=== PATIENT | male | born 1995 | race Caucasian/White ===

== ENCOUNTER 2017-01-31 12:49 | Emergency (ER) | payer MEDICAID ==
[2014-06-03 14:14] VITALS: BMI 23.2
[~2017-01-31 12:49] MED LIST: ACETAMINOPHEN325 MG PO
== END 2017-01-31 14:25 | disposition home or self-care (01) ==
LOC: D.ER 12:49
DX: H61.21 Impacted cerumen, right ear (principal); J02.9 Acute pharyngitis, unspecified

== ENCOUNTER 2018-01-06 22:50 | Emergency (ER) | payer MEDICAID ==
[~2018-01-06] VITALS: Ht 177.8 cm; Wt 72.7 kg
[2018-01-06 23:04] VITALS: BP 138/95; Ht 177.8 cm; Wt 72.7 kg
[2018-01-07] MEDS ORDERED: ACETAMINOPHEN500 M1 PO (00:17)
[2018-01-07] MEDS ORDERED: PENICILLIN V P500 MG PO ×2 (00:17→00:21)
[2018-01-07] MEDS ORDERED: IBUPROFEN800 MG PO ×2 (00:17→00:21)
== END 2018-01-07 00:43 | disposition home or self-care (01) ==
LOC: D.ER 22:50
DX: R68.84 Jaw pain (principal)

== ENCOUNTER 2018-01-27 22:59 | Emergency (ER) | payer MEDICAID ==
[~2018-01-27] VITALS: Ht 177.8 cm; Wt 81.6 kg
[~2018-01-27 22:59] MED LIST changes: +ACETAMINOPHEN500 M1 PO; +IBUPROFEN800 MG PO; +PENICILLIN V P500 MG PO
[2018-01-27 23:05] VITALS: Ht 177.8 cm; Wt 81.6 kg
[2018-01-27] MEDS ORDERED: AMOXICILLIN500 M1 PO (23:41)
[2018-01-27 23:46] VITALS: BP 129/81
== END 2018-01-27 23:47 | disposition home or self-care (01) ==
LOC: D.ER 22:59
DX: K04.7 Periapical abscess without sinus (principal)

== ENCOUNTER 2018-04-28 | Emergency (ER) | payer MEDICAID ==
[~2018-04-28] VITALS: Ht 177.8 cm; Wt 81.8 kg
[~2018-04-28] MED LIST changes: +AMOXICILLIN500 M1 PO
[2018-04-28 00:07] VITALS: Ht 177.8 cm; Wt 81.8 kg
[2018-04-28] MEDS ORDERED: IBUPROFEN800 MG PO (00:22)
[2018-04-28] MEDS ORDERED: PENICILLIN V P500 MG PO (00:22)
[2018-04-28 00:32] VITALS: BP 145/97
== END 2018-04-28 00:32 | disposition home or self-care (01) ==
LOC: D.ER
DX: K08.89 Other specified disorders of teeth and supporting structures (principal)

== ENCOUNTER 2018-05-26 12:26 | Emergency (ER) | payer MEDICAID ==
[~2018-05-26] VITALS: Ht 177.8 cm; Wt 81.8 kg
[2018-05-26 12:30] VITALS: Ht 177.8 cm; Wt 81.8 kg
[2018-05-26] MEDS ORDERED: AUGMENTIN 875-11 TAB PO (15:21)
[2018-05-26 15:26] VITALS: BP 128/72
== END 2018-05-26 15:35 | disposition home or self-care (01) ==
LOC: D.ER 12:26
DX: L03.011 Cellulitis of right finger (principal)

== ENCOUNTER 2018-06-02 12:20 | Emergency (ER) | payer MEDICAID ==
[~2018-06-02] VITALS: Ht 180.3 cm; Wt 81.8 kg
[~2018-06-02 12:20] MED LIST changes: +AUGMENTIN 875-11 TAB PO
[2018-06-02 12:35] VITALS: Ht 180.3 cm; Wt 81.8 kg
[2018-06-02] MEDS ORDERED: MUPIROCIN22 GM TOPICAL (13:58)
[2018-06-02 14:12] VITALS: BP 134/82
== END 2018-06-02 14:13 | disposition home or self-care (01) ==
LOC: D.ER 12:20
DX: S61.203D Unspecified open wound of left middle finger without damage to nail, subsequent encounter (principal); X58.XXXD Exposure to other specified factors, subsequent encounter; Z48.00 Encounter for change or removal of nonsurgical wound dressing

== ENCOUNTER 2018-09-30 19:16 | Inpatient (IN) | payer MEDICAID ==
[~2018-09-30] VITALS: Ht 180.3 cm; Wt 75.8 kg
[~2018-09-30 19:16] MED LIST changes: +MUPIROCIN22 GM TOPICAL
[2018-09-30 19:58] LABS: BASOPHILS 0.3 % (0-2); EOSINOPHILS 4.4 % (0-7); IMMATURE GRANULOCYTES 0.2 % (0-5); LYMPHOCYTES 17.5 % (15-50); MCHC 28.1 g/dL (31.0-37.0); MCV 66.9 fL (80.0-100.0); MEAN PLATELET VOLUME 8.3 fL (7.4-10.4); MONOCYTES 14.5 % (2-11); NEUTROPHILS 63.1 % (40-80); PLATELET COUNT 388 10x3/uL (130-400); RBC 3.14 10x6/uL (4.20-6.10); RDW 17.5 % (11.5-14.5); WBC 6.1 10x3/uL (4.8-10.8)
[2018-09-30 20:07] LABS: INR 1.08 (0.85-1.17); PROTIME 13.5 SECONDS (11.6-15.0)
[2018-09-30 20:19] LABS: ALKALINE PHOSPHATASE 93 U/L (46-116); ALT (SGPT) 16 U/L (10-68); BILIRUBIN - TOTAL 0.19 mg/dL (0.2-1.3); CALC OSMOLALITY 274 mosm/kg (275-300); CALCIUM 7.9 mg/dL (8.5-10.1); CARBON DIOXIDE 25.9 mmol/L (21.0-32.0); CHLORIDE - SERUM 102 mmol/L (98-107); CREATININE - SERUM 1.1 mg/dL (0.6-1.3); GLUCOSE 120 mg/dL (74-106); HEMOGLOBIN 5.9 g/dL (13.5-17.5); LIPASE 162 U/L (73-393); MCH 18.8 pg (26.0-34.0); POTASSIUM - SERUM 3.8 mmol/L (3.5-5.1); PROTEIN - SERUM 6.9 g/dL (6.4-8.2); SODIUM 137 mmol/L (136-145); UREA NITROGEN 13 mg/dL (7-18); eGFR NON AFRICAN AMERICAN 87 mL/min (90-120)
[2018-09-30 20:24] VITALS: BP 116/78
[2018-09-30 21:56] VITALS: BP 122/78
--- NOTE | 2018-09-30 22:21 | NUR ---
RECIEVED TO ROOM 2103 FROM ER VIA STRETCHER. PT A&O. RESPERATIONS EVEN ON RA. VITALS STABLE. IV TO LEFT AC WITH PRBCS INFUSING. NO S/S ADVERSE REACTION NOTED. HISTORY AND MED REC OBTAIN. PT RIP DENIES PAIN OR NEEDS. BED LOW, CL IN REACH.
--- NOTE | 2018-09-30 23:25 | NUR ---
PRBCs FINISHED INFUSING, LINE FLUSHING WITH NS. VITALS STABLE. NO S/S ADVERSE REACTION NOTED.
[2018-10-01] VITALS (7 sets, daily range): BP systolic 94–124; BP diastolic 58–83; Ht 180.3 cm; Wt 75.8 kg
--- NOTE | 2018-10-01 02:25 | NUR ---
RESTING WITH EYES CLOSED, RESPERATIONS EVEN. NO S/S DISTRESS NOTED.
--- NOTE | 2018-10-01 03:45 | NUR ---
SECOND UNIT OF PRBCS FINISHED INFUSING, LINE FLUSHING WITH NS. VITALS STABLE. NO SIGNS OF ADVERSE REACTION NOTED.
[2018-10-01 05:30] LABS: BASOPHILS 0.4 % (0-2); EOSINOPHILS 5.4 % (0-7); HEMATOCRIT 24.8 % (42.0-54.0); MCH 21.7 pg (26.0-34.0); MCHC 30.2 g/dL (31.0-37.0); MEAN PLATELET VOLUME 8.7 fL (7.4-10.4); MONOCYTES 22.2 % (2-11); PLATELET COUNT 324 10x3/uL (130-400); RBC 3.45 10x6/uL (4.20-6.10); RDW 20.9 % (11.5-14.5); WBC 4.6 10x3/uL (4.8-10.8)
[2018-10-01 05:34] LABS: HEMOGLOBIN 7.5 g/dL (13.5-17.5); MCV 71.9 fL (80.0-100.0)
[2018-10-01 05:53] LABS: ALBUMIN 2.7 g/dL (3.4-5.0); ALKALINE PHOSPHATASE 78 U/L (46-116); ALT (SGPT) 16 U/L (10-68); BILIRUBIN - TOTAL 0.31 mg/dL (0.2-1.3); CALC OSMOLALITY 277 mosm/kg (275-300); CALCIUM 7.9 mg/dL (8.5-10.1); CARBON DIOXIDE 24.2 mmol/L (21.0-32.0); CHLORIDE - SERUM 105 mmol/L (98-107); CREATININE - SERUM 0.9 mg/dL (0.6-1.3); GLUCOSE 98 mg/dL (74-106); POTASSIUM - SERUM 3.9 mmol/L (3.5-5.1); PROTEIN - SERUM 6.1 g/dL (6.4-8.2); SODIUM 140 mmol/L (136-145); UREA NITROGEN 11 mg/dL (7-18); eGFR NON AFRICAN AMERICAN > 90 mL/min (90-120)
[2018-10-01 08:45] LABS: TOTAL IRON BIND CAPACITY 242 ug/dl (260-445)
[2018-10-01 08:54] LABS: % SATURATION 5 % (15-55); IRON 14 ug/dl (35-150); UNSAT IRON BIND CAPACITY 228 ug/dl (150-375)
--- NOTE | 2018-10-01 22:08 | NUR ---
PROTONIX GIVEN SLOW IVP. PT DENIES PAIN OR NEEDS, BED LOW, CL IN REACH.
[2018-10-02] VITALS: BP 103/62
--- NOTE | 2018-10-02 01:26 | NUR ---
I have reviewed this patient and I concur with the Shift Assessment completed by the Licensed Practical Nurse today this shift.
[2018-10-02 04:30] VITALS: BP 109/70
[2018-10-02 05:43] LABS: ALBUMIN 2.6 g/dL (3.4-5.0); ALKALINE PHOSPHATASE 84 U/L (46-116); ALT (SGPT) 13 U/L (10-68); BILIRUBIN - TOTAL 0.27 mg/dL (0.2-1.3); CALC OSMOLALITY 280 mosm/kg (275-300); CALCIUM 7.9 mg/dL (8.5-10.1); CARBON DIOXIDE 27.1 mmol/L (21.0-32.0); CHLORIDE - SERUM 106 mmol/L (98-107); GLUCOSE 89 mg/dL (74-106); MAGNESIUM - SERUM 2.1 mg/dL (1.8-2.4); PROTEIN - SERUM 6.4 g/dL (6.4-8.2); SODIUM 142 mmol/L (136-145); UREA NITROGEN 10 mg/dL (7-18); eGFR NON AFRICAN AMERICAN > 90 mL/min (90-120)
[2018-10-02 05:58] LABS: EOSINOPHILS 8.9 % (0-7); HEMATOCRIT 25.6 % (42.0-54.0); HEMOGLOBIN 7.6 g/dL (13.5-17.5); LYMPHOCYTES 35.7 % (15-50); MCH 21.4 pg (26.0-34.0); MCHC 29.7 g/dL (31.0-37.0); MCV 72.1 fL (80.0-100.0); MEAN PLATELET VOLUME 9.1 fL (7.4-10.4); MONOCYTES 17.2 % (2-11); NEUTROPHILS 37.2 % (40-80); PLATELET COUNT 407 10x3/uL (130-400); RBC 3.55 10x6/uL (4.20-6.10); RDW 20.5 % (11.5-14.5); WBC 4.1 10x3/uL (4.8-10.8)
--- NOTE | 2018-10-02 06:42 | NUR ---
SPOKE WITH YONATHAN IN BLOOD BANK, ASKED ABOUT THE 2 [address]S THAT [address] MARKS ORDERED LAST NIGHT THAT ARE TO BE INFUSED THIS AM, INFORMED THAT THE BLOOD WAS NOT READY YET, BUT THAT THEY DO HAVE THE ORDER AND WILL BE WORKING ON IT SHORTLY. WILL PASS THIS INFO ON TO DAY SHIFT NURSE.
[2018-10-02 08:00] VITALS: BP 99/66
[2018-10-02 09:21] LABS: FOLATE (FOLIC ACID) - SERUM 18.3 ng/mL (>3.0)
[2018-10-02 12:00] VITALS: BP 101/64
--- NOTE | 2018-10-02 14:09 | NUR ---
I have reviewed this patient and I concur with the Shift Assessment completed by the Licensed Practical Nurse today this shift.
[2018-10-02 16:00] VITALS: BP 113/71
--- NOTE | 2018-10-02 19:18 | NUR ---
ASSESSMENT COMPLETE, PT A&O. RESPERATIONS EVEN ON RA. IV TO RIGHT AC WITH PRBCS INFUSING. INFORMED BY DAY SHIFT NURSE THAT THIS WAS THE SECOND UNIT GIVEN TODAY. VITALS STABLE. PT DENIES PAIN OR NEEDS.
[2018-10-02 20:00] VITALS: BP 114/77
--- NOTE | 2018-10-02 21:00 | NUR ---
BLOOD FINISHED INFUSING, LINE FLUSHING WITH NS. NO S/S ADVERSE REACTION NOTED.
--- NOTE | 2018-10-02 21:49 | NUR ---
DR MARKS AT BED SIDE TO SEE PT.
[2018-10-03] VITALS: BP 114/77
--- NOTE | 2018-10-03 03:15 | NUR ---
I have reviewed this patient and I concur with the Shift Assessment completed by the Licensed Practical Nurse today this shift.
[2018-10-03 04:00] VITALS: BP 113/70
[2018-10-03 07:00] LABS: BASOPHILS 0.4 % (0-2); EOSINOPHILS 6.8 % (0-7); IMMATURE GRANULOCYTES 0.2 % (0-5); LYMPHOCYTES 35.5 % (15-50); MCH 23.5 pg (26.0-34.0); MCHC 31.2 g/dL (31.0-37.0); MEAN PLATELET VOLUME 8.9 fL (7.4-10.4); MONOCYTES 12.6 % (2-11); NEUTROPHILS 44.5 % (40-80); PLATELET COUNT 375 10x3/uL (130-400); RDW 20.5 % (11.5-14.5)
[2018-10-03 07:03] LABS: HEMATOCRIT 34.9 % (42.0-54.0); HEMOGLOBIN 10.9 g/dL (13.5-17.5); MCV 75.2 fL (80.0-100.0); RBC 4.64 10x6/uL (4.20-6.10); WBC 5.5 10x3/uL (4.8-10.8)
[2018-10-03 07:25] LABS: ALKALINE PHOSPHATASE 87 U/L (46-116); ALT (SGPT) 15 U/L (10-68); BILIRUBIN - TOTAL 0.36 mg/dL (0.2-1.3); CALC OSMOLALITY 282 mosm/kg (275-300); CALCIUM 8.1 mg/dL (8.5-10.1); CARBON DIOXIDE 25.7 mmol/L (21.0-32.0); CHLORIDE - SERUM 105 mmol/L (98-107); CREATININE - SERUM 1.1 mg/dL (0.6-1.3); GLUCOSE 115 mg/dL (74-106); POTASSIUM - SERUM 3.8 mmol/L (3.5-5.1); PROTEIN - SERUM 6.8 g/dL (6.4-8.2); SODIUM 142 mmol/L (136-145); UREA NITROGEN 10 mg/dL (7-18); eGFR NON AFRICAN AMERICAN 87 mL/min (90-120)
--- NOTE | 2018-10-03 09:07 | NUR ---
PT TRANSFERED TO GI LAB AT THIS TIME.
[2018-10-03 09:54] VITALS: BP 115/75
--- NOTE | 2018-10-03 10:48 | NUR ---
PT TRANSFERED BACK TO ROOM 2103, PT A/O X4, RESP EVEN AND NONLABORED ON RA. PROVIDED PT WITH CUP OF COFFEE AND MILK, PT DENIES ANY OTHER NEEDS AT THIS TIME. CALL LIGHT IN REACH, NAD NOTED, WILL CONTINUE TO MONITOR.
[2018-10-03] MEDS ORDERED: PROTONIX40 MG PO (13:34)
[2018-10-03] MEDS ORDERED: PEPCID40 MG PO (13:36)
[2018-10-03 14:10] VITALS: BP 113/70
--- NOTE | 2018-10-03 15:01 | MORECARE ---
CASE MANAGEMENT DISCHARGE SUMMARY PATIENT: JULISSA HEARD UNIT: [id number] ADM DATE: 09/30/18 AGE: 23 : [birth year] SEX: M ROOM/BED: D.2104 AUTHOR: JASMYN KENT PHYSICIAN: REFERRING PHYSICIAN: ZACHARY ORTIZ MD DATE OF SERVICE: 10/03/18 Discharge Plan Patient Name: JULISSA HEARD [facility] [facility] 1995 Planned Disposition: Home Anticipated Discharge Date: Discharge Date: Expected LOS: Initial Reviewer: [email or web address] Initial Review Date: 09/30/2018 Generated: 10/03/18 4:01 pm DCPIA - Discharge Planning Initial Assessment Updated by [email or web address]: Sarah Ngo on 10/03/18 2:54 pm * Is the patient Alert and Oriented? Yes * How many steps to enter\exit or inside your home? * PCP NONE * Pharmacy [facility] [address] * Preadmission Environment Home with Family * ADLs Independent * Equipment None * List name and contact numbers for known caregivers / representatives who currently or will assist patient after discharge: KEYANA HEARD, MOTHER, * Verbal permission to speak to the caregivers and representatives has been obtained from the patient. Yes * Community resources currently utilized None * Additional services required to return to the preadmission environment? No * Can the patient safely return to the preadmission environment? Yes * Has this patient been hospitalized within the prior 30 days at any hospital? No Patient Name: JULISSA HEARD Page [phone] at 1501 All edits/amendments must be made on the electronic document DICTATION DATE: 10/03/18 1501 FRONT OFFICE ADMINISTRATOR: AZALEA 10/03/18 1501 RPT#: [id number] DC DATE: STATUS: ADM IN [facility] [address] [place] [address] END OF REPORT
--- NOTE | 2018-10-03 15:11 | MORECARE ---
CASE MANAGEMENT DISCHARGE SUMMARY PATIENT: JULISSA HEARD UNIT: [id number] ADM DATE: 09/30/18 AGE: 23 : [birth year] SEX: M ROOM/BED: D.2104 AUTHOR: YOLI,DOC PHYSICIAN: REFERRING PHYSICIAN: ZACHARY ORTIZ MD DATE OF SERVICE: 10/03/18 Discharge Plan Patient Name: JULISSA HEARD Facility: [facility]:[place] : 1995 Planned Disposition: Home Anticipated Discharge Date: Discharge Date: Expected LOS: Initial Reviewer: [id number] Initial Review Date: 09/30/2018 Generated: 10/03/18 4:11 pm Comments DCP- Discharge Planning Updated by [email or web address]: Sarah Ngo on 10/03/18 2:[address] Patient Name: JULISSA HEARD Admission Status: ER Accout number: [id number] Admission Date: 09-30-2018 : 1995 Admission Diagnosis: Attending: ZACHARY ORTIZ Current LOS: 3 Anticipated DC Date: Planned Disposition: Home Primary Insurance: [employer] Discharge Planning Comments: CM MET WITH PATIENT IN THE ROOM TO DISCUSS DISCHARGE PLANNING NEEDS. PATIENT STATED THAT HE LIVES AT HOME WITH MOM. THERE ARE 3 STEPS AT THE FRONT OF THE APARTMENT AND 18 STEPS WITH A BANISTER ONCE YOU GET INSIDE. HE STATED THAT HE WAS ABLE TO CLIMB THOSE JUST FINE PRIOR TO GETTING SICK. HE STATED THAT HE HAS ONLY BEEN UP TO THE BATHROOM WHILE HE WAS IN THE HOSPITAL. I ASKED IF HE WOULD BE WILLING TO WALK THE HALLS ONE ROTATION TO MAKE SURE HIS STRENGTH WAS GOOD ENOUGH, AND HE STATED THAT HE FELT HE WOULD BE OK WITH OUT DOING THAT. HE DENIES ANY COMMUNIT RESOURCES CURRENTLY OR THE NEED FOR THEM. HE HAS NOT MEDICAL EQUIPMENT. HE EXPRESSED HIS CONCERN ABOUT NOT HAVING ANYTHING TO WEAR HOME AND I EXPLAINED THAT I WOULD GET HIM A PAIR OF SCRUBS TO WEAR HOME. HE STATED THAT HE ALSO HAS NO TRANSPORTATION HOME. I ASKED IF HE HAD FAMILY THAT COULD TRANSPORT HIM HOME. HE STATED THAT HE HAS A BROTHER THAT WORKS AWAY DURING THE WEEK AND WOULD NOT BE BACK UNTIL THE WEEKEND. HE WOULD ONLY BE ABLE TO GIVE HIM A RIDE ON MONDAY. I ASKED ABOUT HIS MOM, AND HE STATED THAT SHE DOES NOT DRIVE NOR DOES SHE HAVE A CAR. I ASKED IF HE KNEW IF HIS [employer]IVATE [employer] HAD TRANSPORTATION BENEFITS, AND HE SAID HE DID NOT KNOW- THEY JUST USUALLY HAVE TO FIND A RIDE WHEN NEEDED. I EXPLAINED THAT I WOULD LOOK INTO IT AND SEE WHAT WE COULD DO TO HELP AND LET HIM KNOW. AFTER COLLABORATING WITH [employer] [place], IT WAS DISCOVERED THAT THE PATIENTS ADDRESS IS ON THE BUS ROUTE AND A BUS PASS WAS GIVEN FOR TRANSPORT HOME. PT REPORTED TO [facility] THAT HE WOULD LIKE FOOD BEFORE HE LEAVES BECAUSE THEY DID NOT HAVE MUCH FOOD, AND YOHANNES ALSO PROVIDED THE PATIENT INFORMATION FOR [facility] [facility]. WILL FOLLOW UNTIL PATIENT LEAVES. Drive In Waiter/Waitress: Sarah Ngo RN DCPIA - Discharge Planning Initial Assessment Updated by [email or web address]: Sarah Ngo on 10/03/18 2:54 pm * Is the patient Alert and Oriented? Yes * How many steps to enter\exit or inside your home? * PCP NONE * Pharmacy [facility] [address] * Preadmission Environment Home with Family * ADLs Independent * Equipment None * List name and contact numbers for known caregivers / representatives who currently or will assist patient after discharge: KEYANA HEARD, MOTHER, * Verbal permission to speak to the caregivers and representatives has been obtained from the patient. Yes * Community resources currently utilized None * Additional services required to return to the preadmission environment? No * Can the patient safely return to the preadmission environment? Yes * Has this patient been hospitalized within the prior 30 days at any hospital? No Last DP export: 10/03/18 2:01 p Patient Name: JULISSA HEARD Page [phone] at 1511 All edits/amendments must be made on the electronic document DICTATION DATE: 10/03/181509 TECHNICAL SERVICES REP: AZALEA 10/03/181509 RPT#: [id number] DC DATE: STATUS: ADM IN [facility] [address] [place] [address] END OF REPORT
--- NOTE | 2018-10-03 15:52 | NUR ---
PROVIDED VERBAL AND WRITTEN DISCHARGE TEACHING. PT VERBALIZED UNDERSTANDING REGARDING TEACHING. D/C RT HAND IV WITH CATHETER TIP INTACT. PT READY FOR WHEELCHAIR.
--- NOTE | 2018-10-03 16:00 | NUR ---
PT LEFT UNIT VIA WHEELCHAIR, WITH ALL BELONGINGS. PT TO RIDE BUS HOME. NAD NOTED.
--- NOTE | 2018-10-03 17:12 | MORECARE ---
CASE MANAGEMENT DISCHARGE SUMMARY PATIENT: JULISSA HEARD UNIT: [id number] ADM DATE: 09/30/18 AGE: 23 : [birth year] SEX: M ROOM/BED: D.2104 AUTHOR: YOLI,DOC PHYSICIAN: REFERRING PHYSICIAN: ZACHARY ORTIZ MD DATE OF SERVICE: 10/03/18 Discharge Plan Patient Name: JULISSA HEARD Facility: [facility]:[place] : 1995 Planned Disposition: Home Anticipated Discharge Date: 10/03/18 Discharge Date: 10/03/2018 Expected LOS: 3 Initial Reviewer: [email or web address] Initial Review Date: 09/30/2018 Generated: 10/03/18 6:12 pm Comments DCP- Discharge Planning Updated by [email or web address]: Sarah Ngo on 10/03/18 2:[address] Patient Name: JULISSA HEARD Admission Status: ER Accout number: [id number] Admission Date: 09-30-2018 : 1995 Admission Diagnosis: Attending: ZACHARY ORTIZ Current LOS: 3 Anticipated DC Date: Planned Disposition: Home Primary Insurance: [employer] Discharge Planning Comments: CM MET WITH PATIENT IN THE ROOM TO DISCUSS DISCHARGE PLANNING NEEDS. PATIENT STATED THAT HE LIVES AT HOME WITH MOM. THERE ARE 3 STEPS AT THE FRONT OF THE APARTMENT AND 18 STEPS WITH A BANISTER ONCE YOU GET INSIDE. HE STATED THAT HE WAS ABLE TO CLIMB THOSE JUST FINE PRIOR TO GETTING SICK. HE STATED THAT HE HAS ONLY BEEN UP TO THE BATHROOM WHILE HE WAS IN THE HOSPITAL. I ASKED IF HE WOULD BE WILLING TO WALK THE HALLS ONE ROTATION TO MAKE SURE HIS STRENGTH WAS GOOD ENOUGH, AND HE STATED THAT HE FELT HE WOULD BE OK WITH OUT DOING THAT. HE DENIES ANY COMMUNIT RESOURCES CURRENTLY OR THE NEED FOR THEM. HE HAS NOT MEDICAL EQUIPMENT. HE EXPRESSED HIS CONCERN ABOUT NOT HAVING ANYTHING TO WEAR HOME AND I EXPLAINED THAT I WOULD GET HIM A PAIR OF SCRUBS TO WEAR HOME. HE STATED THAT HE ALSO HAS NO TRANSPORTATION HOME. I ASKED IF HE HAD FAMILY THAT COULD TRANSPORT HIM HOME. HE STATED THAT HE HAS A BROTHER THAT WORKS AWAY DURING THE WEEK AND WOULD NOT BE BACK UNTIL THE WEEKEND. HE WOULD ONLY BE ABLE TO GIVE HIM A RIDE ON MONDAY. I ASKED ABOUT HIS MOM, AND HE STATED THAT SHE DOES NOT DRIVE NOR DOES SHE HAVE A CAR. I ASKED IF HE KNEW IF HIS [employer]IVATE [employer] HAD TRANSPORTATION BENEFITS, AND HE SAID HE DID NOT KNOW- THEY JUST USUALLY HAVE TO FIND A RIDE WHEN NEEDED. I EXPLAINED THAT I WOULD LOOK INTO IT AND SEE WHAT WE COULD DO TO HELP AND LET HIM KNOW. AFTER COLLABORATING WITH [employer], IT WAS DISCOVERED THAT THE PATIENTS ADDRESS IS ON THE BUS ROUTE AND A BUS PASS WAS GIVEN FOR TRANSPORT HOME. PT REPORTED TO [facility] THAT HE WOULD LIKE FOOD BEFORE HE LEAVES BECAUSE THEY DID NOT HAVE MUCH FOOD, AND YOHANNES ALSO PROVIDED THE PATIENT INFORMATION FOR [employer]. WILL FOLLOW UNTIL PATIENT LEAVES. Printing Shop Supervisor: Sarah Ngo RN DCPIA - Discharge Planning Initial Assessment Updated by [id number]: Sarah Ngo on 10/03/18 2:54 pm * Is the patient Alert and Oriented? Yes * How many steps to enter\exit or inside your home? * PCP NONE * [facility] [address] * Preadmission Environment Home with Family * ADLs Independent * Equipment None * List name and contact numbers for known caregivers / representatives who currently or will assist patient after discharge: KEYANA HEARD, MOTHER, * Verbal permission to speak to the caregivers and representatives has been obtained from the patient. Yes * Community resources currently utilized None * Additional services required to return to the preadmission environment? No * Can the patient safely return to the preadmission environment? Yes * Has this patient been hospitalized within the prior 30 days at any hospital? No Last DP export: 10/03/18 2:11 p Patient Name: JULISSA HEARD Page [phone] at 1712 All edits/amendments must be made on the electronic document DICTATION DATE: 10/03/181710 KNOCKDOWN WORKER: AZALEA 10/03/181710 RPT#: [id number] DC DATE:10/03/18 STATUS: DIS IN [facility] [address] [place] [address] END OF REPORT
== END 2018-10-03 16:01 | disposition home or self-care (01) | DRG 812 ==
LOC: D.ER 19:16 → D.M2 21:56
PROVIDERS: Emergency Medicine; Family Medicine; Internal Medicine Gastroenterology; Legal Medicine; ADMIT Internal Medicine Nephrology; ATTEND Internal Medicine Nephrology
PROC: 0DB68ZX Excision of Stomach, Via Natural or Artificial Opening Endoscopic, Diagnostic (ICD-10-PCS; 2018-10-03)
PROC: 0DB58ZX Excision of Esophagus, Via Natural or Artificial Opening Endoscopic, Diagnostic (ICD-10-PCS; 2018-10-03)
PROC: 0DB98ZX Excision of Duodenum, Via Natural or Artificial Opening Endoscopic, Diagnostic (ICD-10-PCS; principal; 2018-10-03 09:25)
DX: D62 Acute posthemorrhagic anemia (principal); K22.10 Ulcer of esophagus without bleeding; D50.9 Iron deficiency anemia, unspecified; D72.819 Decreased white blood cell count, unspecified; K44.9 Diaphragmatic hernia without obstruction or gangrene; K31.7 Polyp of stomach and duodenum; K29.80 Duodenitis without bleeding; K59.00 Constipation, unspecified

== ENCOUNTER 2019-03-15 16:55 | Observation (INO) | payer MEDICAID ==
[2019-03-15] VITALS (7 sets, daily range): BP systolic 118–149; BP diastolic 80–106
[~2019-03-15] VITALS: Ht 180.3 cm; Wt 81.8 kg
[~2019-03-15 16:55] MED LIST changes: +PEPCID40 MG PO; +PROTONIX40 MG PO
[2019-03-15] MEDS ORDERED: [UNRECOGNIZED DRUG - REMARK] (17:03)
[2019-03-15] MEDS ORDERED: [UNRECOGNIZED DRUG - REMARK] (17:04)
[2019-03-15 17:23] LABS: BASOPHILS 0.6 % (0-2); EOSINOPHILS 4.4 % (0-7); HEMATOCRIT 38.4 % (42.0-54.0); HEMOGLOBIN 12.4 g/dL (13.5-17.5); IMMATURE GRANULOCYTES 0.2 % (0-5); LYMPHOCYTES 26.8 % (15-50); MCH 23.7 pg (26.0-34.0); MCHC 32.3 g/dL (31.0-37.0); MCV 73.3 fL (80.0-100.0); MEAN PLATELET VOLUME 8.7 fL (7.4-10.4); MONOCYTES 11.2 % (2-11); NEUTROPHILS 56.8 % (40-80); PLATELET COUNT 352 10x3/uL (130-400); RBC 5.24 10x6/uL (4.20-6.10); RDW 17.4 % (11.5-14.5); WBC 5.4 10x3/uL (4.8-10.8)
--- NOTE | 2019-03-15 17:27 | NUR ---
FSBS= 119 MG/DL
[2019-03-15 17:48] LABS: ALBUMIN 4.3 g/dL (3.4-5.0); ALKALINE PHOSPHATASE 75 U/L (46-116); ALT (SGPT) 17 U/L (10-68); BILIRUBIN - TOTAL 0.38 mg/dL (0.2-1.3); CALC OSMOLALITY 279 mosm/kg (275-300); CALCIUM 9.7 mg/dL (8.5-10.1); CARBON DIOXIDE 21.5 mmol/L (21.0-32.0); CHLORIDE - SERUM 102 mmol/L (98-107); CREATININE - SERUM 1.3 mg/dL (0.6-1.3); GLUCOSE 123 mg/dL (74-106); POTASSIUM - SERUM 3.7 mmol/L (3.5-5.1); PROTEIN - SERUM 7.8 g/dL (6.4-8.2); SODIUM 140 mmol/L (136-145); UREA NITROGEN 12 mg/dL (7-18); eGFR NON AFRICAN AMERICAN 71 mL/min (90-120)
[2019-03-15 17:56] LABS: APTT 24.9 SECONDS (22.8-39.4); INR 1.11 (0.85-1.17); PROTIME 13.8 SECONDS (11.6-15.0)
[2019-03-15 17:59] LABS: AMYLASE - SERUM 32 U/L (25-115); LIPASE 167 U/L (73-393); THYROID STIMULATING HORMONE 1.26 uIU/mL (0.36-3.74); TROPONIN-I < 0.017 ng/mL (0.000-0.060)
[2019-03-15 18:02] LABS: UDS - AMPHET NEGATIVE QUAL (NEGATIVE); UDS - BARB NEGATIVE QUAL (NEGATIVE); UDS - BENZO NEGATIVE QUAL (NEGATIVE); UDS - COCAINE NEGATIVE QUAL (NEGATIVE); UDS - OPIATE NEGATIVE QUAL (NEGATIVE); UDS - PCP NEGATIVE QUAL (NEGATIVE); UDS - THC NEGATIVE QUAL (NEGATIVE)
[2019-03-15 18:03] LABS: APPEARANCE CLEAR (CLEAR); BILIRUBIN NEGATIVE (NEGATIVE); COLOR YELLOW (YELLOW); GLUCOSE NEGATIVE (NEGATIVE); KETONE SMALL mg/dL (NEGATIVE); NITRITE NEGATIVE (NEGATIVE); PROTEIN NEGATIVE (NEGATIVE); UROBILINOGEN NORMAL (NORMAL)
--- NOTE | 2019-03-15 18:11 | NUR ---
TO CT VIA STRETCHER
--- NOTE | 2019-03-15 18:29 | NUR ---
RTN TO ROOM RESTING QUIETLY IN BED. VSS
--- NOTE | 2019-03-15 19:07 | NUR ---
BS REPORT TO GLORIA RUEDA BY SBAR FORMAT
--- NOTE | 2019-03-15 19:33 | NUR ---
LAB CALLED CRITICAL LACTIC 4.0. EDP CARSON NOTIFIED.
--- NOTE | 2019-03-15 20:50 | NUR ---
PT IN BED RESTING AT THIS TIME. NO ACUTE DISTRESS NOTED
--- NOTE | 2019-03-15 22:05 | NUR ---
PT IN BED, ON PHONE WITH MOTHER. NO ACUTE DISTRESS NOTED.
--- NOTE | 2019-03-16 | NUR ---
RECEIVED PT FROM ER VIA BED. ALERT AND ANSWERS QUESTIONS APPROPRIATELY. NO SIGNS OF ACUTE DISTRESS NOTED. IV TO THE RIGHT FOREARM, CDI. POSITIONED PT IN BED, CL IN REACH AND ENCOURAGED PT TO USE CALL LIGHT. CONTINUE WITH PLAN OF CARE.
[2019-03-16 00:28] VITALS: BP 136/77; Ht 180.3 cm; Wt 81.8 kg
--- NOTE | 2019-03-16 03:15 | NUR ---
PT REPORTS PAIN DURING IV INFUSING TO THE RT FOREARM. DC WITH CATH INTACT. RESIDTED IV IN THE RT FOREARM RIGHT ABOVE THE PREVIOUS SITE. CONTINUE WITH PLAN OF CARE.
[2019-03-16 05:09] LABS: BASOPHILS 0.3 % (0-2); EOSINOPHILS 0.7 % (0-7); HEMATOCRIT 32.5 % (42.0-54.0); HEMOGLOBIN 10.7 g/dL (13.5-17.5); IMMATURE GRANULOCYTES 0.1 % (0-5); LYMPHOCYTES 19.1 % (15-50); MCH 24.1 pg (26.0-34.0); MCHC 32.9 g/dL (31.0-37.0); MCV 73.2 fL (80.0-100.0); MEAN PLATELET VOLUME 8.6 fL (7.4-10.4); MONOCYTES 10.2 % (2-11); NEUTROPHILS 69.6 % (40-80); PLATELET COUNT 312 10x3/uL (130-400); RBC 4.44 10x6/uL (4.20-6.10); RDW 17.4 % (11.5-14.5)
[2019-03-16] MEDS ORDERED: KEFLEX500 MG PO (05:11)
[2019-03-16 05:13] LABS: WBC 6.9 10x3/uL (4.8-10.8)
[2019-03-16 05:17] VITALS: BP 104/61
[2019-03-16 05:17] LABS: CALC OSMOLALITY 282 mosm/kg (275-300); CALCIUM 8.1 mg/dL (8.5-10.1); CARBON DIOXIDE 26.5 mmol/L (21.0-32.0); CHLORIDE - SERUM 106 mmol/L (98-107); CREATININE - SERUM 1.1 mg/dL (0.6-1.3); GLUCOSE 116 mg/dL (74-106); MAGNESIUM - SERUM 1.6 mg/dL (1.8-2.4); PHOSPHOROUS 3.6 mg/dL (2.5-4.9); POTASSIUM - SERUM 3.7 mmol/L (3.5-5.1); SODIUM 142 mmol/L (136-145); UREA NITROGEN 9 mg/dL (7-18); eGFR NON AFRICAN AMERICAN 87 mL/min (90-120)
--- NOTE | 2019-03-16 07:10 | NUR ---
ALERT AND ORIENTED, RESTING IN BED. NO C/O PAIN. NO S/S OF ACUTE DISTRESS NOTED. IV TO RIGHT FOREARM, NS INFUSING @ 100ML/HR. SITE PATENT WITHOUT REDNESS OR SWELLING. MAG 1.6 THIS AM, NOTIFIED MAGNUS VASQUES. PT DENIES ANY NEEDS. CALL LIGHT IN REACH. WILL CONTINUE TO MONITOR.
[2019-03-16 08:08] VITALS: BP 104/60
[2019-03-16 08:58] LABS: % SATURATION 10 % (15-55); IRON 29 ug/dl (35-150); TOTAL IRON BIND CAPACITY 270 ug/dl (260-445); UNSAT IRON BIND CAPACITY 241 ug/dl (150-375)
--- NOTE | 2019-03-16 10:03 | NUR ---
CALLED NUMBER LISTED FOR MOTHER TO GET MORE INFO ON HIS HOME MEDS, THE ANTIBIOTIC FOR HIS TOES AND ANEMIA MED. NUMBER IS NOT ACCEPTING CALLS AT THIS TIME, WILL TRY AGAIN LATER. PT UNABLE TO TELL THIS NURSE WHAT THE NAMES OF THE MEDS.
--- NOTE | 2019-03-16 10:23 | NUR ---
ABLE TO REACH PT'S MOTHER ON THE PHONE, SHE DOES NOT KNOW WHAT THE MEDS ARE CALLED AND IS NOT AT HOME TO LOOK. STATED SHE WOULD CALL THIS NURSE BACK IF SHE DOES GO BY HOME.
[2019-03-16 12:24] VITALS: BP 120/68
--- NOTE | 2019-03-16 14:56 | NUR ---
I have reviewed this patient and I concur with the Shift Assessment completed by the Licensed Practical Nurse today this shift.
[2019-03-16 17:24] VITALS: BP 118/71
--- NOTE | 2019-03-16 18:28 | NUR ---
ALERT AND ORIENTED, RESTING IN BED. NO C/O PAIN. NO S/S OF ACUTE DISTRESS NOTED. PT DENIES ANY NEEDS AT THIS TIME. CALL LIGHT IN REACH. WILL CONTINUE TO MONITOR.
[2019-03-16] MEDS ORDERED: PROTONIX40 MG PO (18:37)
== END 2019-03-16 20:06 ==
LOC: D.ER 16:55 → D.MS 21:20 → OBSVTIME 21:20 → D.MS 03-16 20:06
PROVIDERS: Family Medicine; ADMIT Internal Medicine Nephrology; ATTEND Internal Medicine Nephrology
DX: D50.9 Iron deficiency anemia, unspecified (principal); L03.119 Cellulitis of unspecified part of limb; R53.1 Weakness; R41.82 Altered mental status, unspecified

== ENCOUNTER 2019-07-28 03:11 | Emergency (ER) | payer OTHER ==
[~2019-07-28] VITALS: Ht 180.3 cm; Wt 86.4 kg
[~2019-07-28 03:11] MED LIST changes: +KEFLEX500 MG PO; +[UNRECOGNIZED DRUG - REMARK]; +[UNRECOGNIZED DRUG - REMARK]
[2019-07-28 03:13] VITALS: Ht 180.3 cm; Wt 86.4 kg
[2019-07-28] MEDS ORDERED: PEPCID40 MG PO (03:24)
[2019-07-28] MEDS ORDERED: ZOLOFT25 MG PO (03:25)
[2019-07-28] MEDS ORDERED: PROTONIX40 MG PO (03:37)
[2019-07-28 04:59] VITALS: BP 119/76
== END 2019-07-28 05:00 | disposition home or self-care (01) ==
LOC: D.ER 03:11
DX: R07.89 Other chest pain (principal); K21.0 Gastro-esophageal reflux disease with esophagitis

== ENCOUNTER 2019-10-15 20:39 | Emergency (ER) | payer MEDICAID ==
[~2019-10-15] VITALS: Ht 180.3 cm; Wt 86.4 kg
[~2019-10-15 20:39] MED LIST changes: +ZOLOFT25 MG PO
[2019-10-15 20:59] VITALS: Ht 180.3 cm; Wt 86.4 kg
[2019-10-15 21:45] LABS: CALC OSMOLALITY 280 mosm/kg (275-300); CALCIUM 8.5 mg/dL (8.5-10.1); CARBON DIOXIDE 26.3 mmol/L (21.0-32.0); CHLORIDE - SERUM 109 mmol/L (98-107); CREATININE - SERUM 0.9 mg/dL (0.6-1.3); GLUCOSE 111 mg/dL (74-106); POTASSIUM - SERUM 4.3 mmol/L (3.5-5.1); SODIUM 141 mmol/L (136-145); UREA NITROGEN 11 mg/dL (7-18); eGFR NON AFRICAN AMERICAN > 90 mL/min (90-120)
[2019-10-15 21:50] LABS: ALBUMIN 3.4 g/dL (3.4-5.0); ALKALINE PHOSPHATASE 64 U/L (30-120); ALT (SGPT) 14 U/L (10-68); BILIRUBIN - TOTAL 0.15 mg/dL (0.2-1.3); PROTEIN - SERUM 6.7 g/dL (6.4-8.2)
[2019-10-15 22:00] LABS: APTT 21.3 SECONDS (22.8-39.4); INR 1.04 (0.85-1.17); PROTIME 13.5 SECONDS (11.6-15.0)
[2019-10-15 22:34] LABS: HEMATOCRIT 29.9 % (42.0-54.0); HEMOGLOBIN 8.3 g/dL (13.5-17.5); LYMPHOCYTES 33.7 % (15-50); MCHC 27.8 g/dL (31.0-37.0); MCV 70.2 fL (80.0-100.0); MEAN PLATELET VOLUME 8.8 fL (7.4-10.4); NEUTROPHILS 50.1 % (40-80); RBC 4.26 10x6/uL (4.20-6.10); RDW 15.1 % (11.5-14.5); WBC 3.4 10x3/uL (4.8-10.8)
[2019-10-15 22:36] LABS: MCH 19.5 pg (26.0-34.0); PLATELET COUNT 515 10x3/uL (130-400)
[2019-10-16 01:03] VITALS: BP 107/78
== END 2019-10-16 01:04 | disposition home or self-care (01) ==
LOC: D.ER 20:39
PROVIDERS: Family Medicine
DX: D50.9 Iron deficiency anemia, unspecified (principal); R42 Dizziness and giddiness; R53.1 Weakness; K21.9 Gastro-esophageal reflux disease without esophagitis

== ENCOUNTER 2019-11-19 20:18 | Outpatient (CLI) | payer MEDICAID ==
[~2019-11-19] VITALS: Ht 152.4 cm; Wt 86.2 kg
[2019-11-19] MEDS ORDERED: FERROUS SULFAT325 MG PO (20:26)
[2019-11-19 20:54] LABS: HEMATOCRIT 24.9 % (42.0-54.0); MCHC 26.9 g/dL (31.0-37.0); MEAN PLATELET VOLUME 8.3 fL (7.4-10.4); PLATELET COUNT 548 10x3/uL (130-400); RBC 3.89 10x6/uL (4.20-6.10); RDW 17.4 % (11.5-14.5); WBC 5.6 10x3/uL (4.8-10.8)
[2019-11-19 21:03] LABS: APTT 26.7 SECONDS (22.8-39.4); INR 1.11 (0.85-1.17); PROTIME 14.2 SECONDS (11.6-15.0)
[2019-11-19 21:05] LABS: HEMOGLOBIN 6.7 g/dL (13.5-17.5); MCH 17.2 pg (26.0-34.0)
[2019-11-19 21:06] LABS: BASOPHILS 0.8 % (0-2); EOSINOPHILS 3.7 % (0-7); LYMPHOCYTES 28.7 % (15-50); MONOCYTES 18.8 % (2-11); NEUTROPHILS 47.8 % (40-80)
[2019-11-19 21:07] LABS: IMMATURE GRANULOCYTES 0.2 % (0-5)
[2019-11-19 21:12] LABS: CALC OSMOLALITY 274 mosm/kg (275-300); CALCIUM 7.7 mg/dL (8.5-10.1); CARBON DIOXIDE 25.3 mmol/L (21.0-32.0); CHLORIDE - SERUM 103 mmol/L (98-107); GLUCOSE 113 mg/dL (74-106); POTASSIUM - SERUM 3.4 mmol/L (3.5-5.1); SODIUM 137 mmol/L (136-145); UREA NITROGEN 13 mg/dL (7-18); eGFR NON AFRICAN AMERICAN > 90 mL/min (90-120)
[2019-11-19 21:18] LABS: ALBUMIN 3.1 g/dL (3.4-5.0); ALKALINE PHOSPHATASE 81 U/L (30-120); ALT (SGPT) 12 U/L (10-68); BILIRUBIN - TOTAL 0.26 mg/dL (0.2-1.3); PROTEIN - SERUM 6.7 g/dL (6.4-8.2)
--- NOTE | 2019-11-19 22:58 | NUR ---
FIRST UNIT OF PRBC TRANSFUSING. BP. 116/80 HR 98 T 97.7
[2019-11-19 23:49] VITALS: Ht 152.4 cm; Wt 86.2 kg
[2019-11-20 01:30] VITALS: BP 117/75
--- NOTE | 2019-11-20 01:41 | NUR ---
SECOND UNIT OF PRBC TRANSFUSING.
[2019-11-20 04:00] VITALS: BP 126/45
[2019-11-20 06:27] LABS: HEMATOCRIT 28.5 % (42.0-54.0); MCHC 28.1 g/dL (31.0-37.0); MEAN PLATELET VOLUME 8.3 fL (7.4-10.4); RBC 4.14 10x6/uL (4.20-6.10); RDW 22.5 % (11.5-14.5); WBC 4.3 10x3/uL (4.8-10.8)
[2019-11-20 06:32] LABS: MCH 19.3 pg (26.0-34.0); MCV 68.8 fL (80.0-100.0); PLATELET COUNT 425 10x3/uL (130-400)
[2019-11-20 06:55] LABS: % SATURATION 5 % (15-55); IRON 12 ug/dl (35-150); TOTAL IRON BIND CAPACITY 232 ug/dl (260-445); UNSAT IRON BIND CAPACITY 220 ug/dl (150-375)
[2019-11-20 07:06] LABS: CALC OSMOLALITY 276 mosm/kg (275-300); CALCIUM 7.8 mg/dL (8.5-10.1); CARBON DIOXIDE 25.4 mmol/L (21.0-32.0); CHLORIDE - SERUM 106 mmol/L (98-107); CREATININE - SERUM 0.9 mg/dL (0.6-1.3); FERRITIN 3 ng/mL (3-244); GLUCOSE 93 mg/dL (74-106); PHOSPHOROUS 3.9 mg/dL (2.5-4.9); POTASSIUM - SERUM 3.9 mmol/L (3.5-5.1); SODIUM 139 mmol/L (136-145); UREA NITROGEN 11 mg/dL (7-18); eGFR NON AFRICAN AMERICAN > 90 mL/min (90-120)
[2019-11-20 08:00] VITALS: BP 113/67
[2019-11-20 10:29] LABS: EOSINOPHILS 8 % (0-7); HYPOCHROMASIA OCC; LYMPHOCYTES 17 % (15-50); MONOCYTES 15 % (2-11); NEUTROPHILS 59 % (40-80); PLATELET ESTIMATE INCREASED
[2019-11-20] MEDS ORDERED: PROTONIX40 MG PO (11:19)
[2019-11-20 12:00] VITALS: BP 124/76
[2019-11-20] MEDS ORDERED: DULCOLAX10 MG/SUPP RC (14:51)
[2019-11-20] MEDS ORDERED: MIRALAX17 GM PO (14:51)
[2019-11-20 15:20] LABS: BILIRUBIN NEGATIVE (NEGATIVE); GLUCOSE NEGATIVE (NEGATIVE); KETONE NEGATIVE (NEGATIVE); NITRITE NEGATIVE (NEGATIVE); UROBILINOGEN NORMAL (NORMAL)
[2019-11-20 16:17] LABS: UDS - AMPHET NEGATIVE QUAL (NEGATIVE); UDS - BARB NEGATIVE QUAL (NEGATIVE); UDS - BENZO NEGATIVE QUAL (NEGATIVE); UDS - COCAINE NEGATIVE QUAL (NEGATIVE); UDS - OPIATE NEGATIVE QUAL (NEGATIVE); UDS - PCP NEGATIVE QUAL (NEGATIVE); UDS - THC NEGATIVE QUAL (NEGATIVE)
--- NOTE | 2019-11-20 16:47 | NUR ---
IV AND TELEMETRY DCD. DC PLANS GIVEN. UNDERSTANDING VOICED. ESCORTED TO CAR BY W/C.
== END 2019-11-20 16:48 | disposition home or self-care (01) ==
LOC: D.ER 20:18 → D.M2 20:18 → D.ER 21:54 → D.M2 21:54 → EDSTATUS 21:55 → D.M2 11-20 16:48
PROVIDERS: Family Medicine; ATTEND Internal Medicine Nephrology
DX: D64.9 Anemia, unspecified (principal); K21.9 Gastro-esophageal reflux disease without esophagitis; R53.1 Weakness; R42 Dizziness and giddiness; R11.2 Nausea with vomiting, unspecified; E87.6 Hypokalemia; F41.8 Other specified anxiety disorders

== ENCOUNTER → 2019-12-25 19:44 | Outpatient (CLI) | payer MEDICAID ==
[~2019-12-25 19:44] MED LIST changes: +DULCOLAX10 MG/SUPP RC; +FERROUS SULFAT325 MG PO; +MIRALAX17 GM PO
[2019-12-25 20:18] LABS: HEMATOCRIT 28.8 % (42.0-54.0); HEMOGLOBIN 7.9 g/dL (13.5-17.5); MCHC 27.4 g/dL (31.0-37.0); MCV 71.1 fL (80.0-100.0); MEAN PLATELET VOLUME 8.4 fL (7.4-10.4); PLATELET COUNT 397 10x3/uL (130-400); RBC 4.05 10x6/uL (4.20-6.10); RDW 22.9 % (11.5-14.5); WBC 3.8 10x3/uL (4.8-10.8)
[2019-12-25 20:21] LABS: MCH 19.5 pg (26.0-34.0)
[2019-12-25 22:47] LABS: EOSINOPHILS 4 % (0-7); LYMPHOCYTES 55 % (15-50); MONOCYTES 3 % (2-11); NEUTROPHILS 39 % (40-80); PLATELET ESTIMATE NORMAL
== END | disposition home or self-care (01) ==
LOC: D.LABREF 19:44
PROVIDERS: ATTEND Legal Medicine
DX: D50.8 Other iron deficiency anemias (principal)

== ENCOUNTER → 2019-12-26 12:22 | Outpatient (CLI) | payer MEDICAID | END | disposition home or self-care (01) | LOC: D.LABREF 12:22 | PROVIDERS: ATTEND Legal Medicine | DX: D50.8 Other iron deficiency anemias (principal) ==

== ENCOUNTER 2020-09-15 08:43 | Emergency (ER) | payer MEDICAID ==
[~2020-09-15] VITALS: Ht 180.3 cm; Wt 90.9 kg
[2020-09-15 08:48] VITALS: Ht 180.3 cm; Wt 90.9 kg
[2020-09-15 09:13] LABS: BASOPHILS 0.3 % (0-2); EOSINOPHILS 4.7 % (0-7); HEMATOCRIT 36.4 % (42.0-54.0); HEMOGLOBIN 11.6 g/dL (13.5-17.5); IMMATURE GRANULOCYTES 0.3 % (0-5); LYMPHOCYTE ABS# 1.71 10x3/uL (1.32-3.57); LYMPHOCYTES 23.5 % (15-50); MCH 24.3 pg (26.0-34.0); MCHC 31.9 g/dL (31.0-37.0); MCV 76.2 fL (80.0-100.0); MEAN PLATELET VOLUME 8.3 fL (7.4-10.4); MONOCYTES 10.2 % (2-11); NEUTROPHIL ABS# 4.45 10x3/uL (1.78-5.38); PLATELET COUNT 408 10x3/uL (130-400); RBC 4.78 10x6/uL (4.20-6.10); RDW 17.3 % (11.5-14.5); WBC 7.3 10x3/uL (4.8-10.8)
[2020-09-15 09:14] LABS: CALC OSMOLALITY 275 mosm/kg (275-300); CALCIUM 8.6 mg/dL (8.5-10.1); CARBON DIOXIDE 25.2 mmol/L (21.0-32.0); CHLORIDE - SERUM 103 mmol/L (98-107); CREATININE - SERUM 1.2 mg/dL (0.6-1.3); GLUCOSE 114 mg/dL (74-106); POTASSIUM - SERUM 3.7 mmol/L (3.5-5.1); SODIUM 138 mmol/L (136-145); UREA NITROGEN 11 mg/dL (7-18); eGFR NON AFRICAN AMERICAN 77 mL/min (90-120)
[2020-09-15 09:16] LABS: APTT 24.9 SECONDS (22.8-39.4); INR 1.09 (0.85-1.17); PROTIME 13.1 SECONDS (11.6-15.0)
[2020-09-15 09:32] LABS: ALBUMIN 3.6 g/dL (3.4-5.0); ALKALINE PHOSPHATASE 65 U/L (30-120); ALT (SGPT) 16 U/L (10-68); BILIRUBIN - TOTAL 0.17 mg/dL (0.2-1.3); CKMB 0.1 U/L (0.0-3.6); CREATINE KINASE 57 UL (21-232); PROTEIN - SERUM 7.1 g/dL (6.4-8.2); TROPONIN-I < 0.017 ng/mL (0.000-0.060)
[2020-09-15 09:52] LABS: PRO BNP 3 pg/mL (0-125)
[2020-09-15 10:29] VITALS: BP 130/90
== END 2020-09-15 10:36 | disposition home or self-care (01) ==
LOC: D.ER 08:43
PROVIDERS: Family Medicine
DX: R06.00 Dyspnea, unspecified (principal); F41.9 Anxiety disorder, unspecified; K21.9 Gastro-esophageal reflux disease without esophagitis